=== PATIENT | female | born 1995 | race Caucasian/White ===

== ENCOUNTER 2016-10-04 11:36 | Inpatient (IN) | payer OTHER ==
[2016-10-04] MEDS ORDERED: SUBLIMAZE IV PRN (12:10)
[2016-10-04] MEDS ORDERED: MINERAL OIL PO PRN (12:10)
[2016-10-04] MEDS ORDERED: BRETHINE SUB-Q PRN (12:10)
[2016-10-04] MEDS ORDERED: BRETHINE IVP PRN (12:10)
[2016-10-04] MEDS ORDERED: ZOFRAN IV PRN (12:10)
[2016-10-04] MEDS ORDERED: NARCAN 0.4 MG/1 ML IV PRN (12:10)
[2016-10-04] MEDS ORDERED: STADOL IV PRN (12:10)
[2016-10-04] MEDS ORDERED: ePHEDrine SULFATE IV PRN ×2 (12:21→14:29)
--- NOTE | 2016-10-04 12:36 | History and Physical Report ---
History of Present Illness Date of examination: 10/04/16 Date of admission: 10/04/16 12:14 Chief complaint: pt presents with c/o of rupture of membranes and uterine contractions Past History Past Medical History: no pertinent history, other (hx of panic attack) [employer] History: chlamydia Social history: no significant social history - Obstetrical History Expected Date of Delivery: 10/20/16 Actual Gestation: 37 Week(s) 5 Day(s) : 1 Number of Living Children: 0 Medications and Allergies Allergies Allergy/AdvReac Type Severity Reaction Status Date / Time No Known Allergies Allergy Verified 10/04/16 11:50 Active Meds: Active Medications Butorphanol Tartrate (Stadol) 2 mg IV Q2H PRN PRN Reason: Pain , Severe (7-10) Fentanyl (Sublimaze) 100 mcg IV Q2H PRN PRN Reason: Labor Pain Lactated Ringer's (Lactated Ringers) 1,000 mls @ 125 mls/hr IV DIRECT CHRISTIAN Oxytocin/Sodium Chloride (Pitocin/Ns 20 Unit/1000ml Drip) 20 unit in 1,000 mls @ 125 mls/hr IV DIRECT CHRISTIAN Oxytocin/Sodium Chloride (Pitocin/Ns 30 Unit/500ml) 30 unit in 500 mls @ 0 mls/ hr IV TITR CHRISTIAN PRN Reason: Protocol Oxytocin/Sodium Chloride (Pitocin/Ns 30 Unit/500ml) 30 unit in 500 mls @ 1 mls/ hr IV TITR CHRISTIAN; 1 MILLIUNITS/MIN PRN Reason: Protocol Lidocaine (Xylocaine 2%) 20 ml INFILTRATI ONCE ONE Stop: 10/04/16 13:01 Mineral Oil (Mineral Oil) 30 ml PO QHS PRN PRN Reason: Constipation Naloxone HCl (Narcan 0.4 Mg/1 Ml) 0.1 mg IV Q2MIN PRN PRN Reason: Res Rate </= 8 or 02 SAT < 92% Ondansetron HCl (Zofran) 4 mg IV Q8H PRN PRN Reason: Nausea And Vomiting Review of Systems All systems: negative Gastrointestinal: abdominal pain Genitourinary: leakage of fluid - Vital Signs Vital signs: Vital Signs Pulse BP 93 H 145/75 10/04/16 11:46 10/04/16 11:46 Temp Pulse Resp BP Pulse Ox 93 H 145/75 10/04/16 11:46 10/04/16 11:46 - Physical Exam Breasts: Cardiovascular: Regular rate, Normal S1, Normal S2 Abdomen: Positive: normal appearance, soft, normal bowel sounds. Negative: distention, tenderness Vulva: both: normal Vagina: Positive: normal moisture. Negative: discharge Cervix: Negative: lesion, discharge Uterus: Positive: normal size, normal contour Adnexa: both: normal Anus/Rectum: Positive: normal perianal skin, heme negative. Negative: rectal mass, hemorrhoids Extremities: Deep Tendon Reflex Grade: Normal +2 - Obstetrical FHR: category 1 Uterine Contraction Monitor Mode: External Cervical Dilatation: 6 Cervical Effacement Percentage: 100 station: -1 Uterine Contraction Pattern: Irregular Uterine Tone Measurement Phase: Resting Results Result Diagrams: 10/04/16 14:04 All other labs normal. Assessment and Plan iup at term, active labor, Plan- admit, augment labor, anticipate
[2016-10-04] MEDS: LACTATED RINGERS 1,000 ML IV SCH ×3 (12:55→20:14)
[2016-10-04] MEDS ORDERED: XYLOCAINE 2% INFILTRATI ONE ×4 (13:00→20:57)
[2016-10-04] MEDS ORDERED: PITOCin/NS 30 UNIT/500ML 30 UNIT/500 ML BAG IV SCH (13:00)
[2016-10-04] MEDS ORDERED: PITOCin/NS 20 UNIT/1000ML DRIP 20 UNIT/1,000 ML BAG IV SCH (13:00)
[2016-10-04 14:21] LABS: Hematocrit 39.3 % (30.3-42.9); Mean Corpuscular HGB Conc 33 % (30-34); Mean Corpuscular Hemoglobin 30 pg (28-32); Mean Corpuscular Volume 89 fl (79-97); Platelet Count 144 K/mm3 (140-440); Red Cell Distribution Width 14.1 % (13.2-15.2); White Blood Count 10.8 K/mm3 (4.5-11.0)
[2016-10-04] MEDS ORDERED: ePHEDrine SULFATE ONE (14:25)
--- NOTE | 2016-10-04 14:29 | Anesthesia Consultation ---
Anesthesia Consult and Med Hx Date of service: 10/04/16 - Airway Anesthetic Teeth Evaluation: Good ROM Head & Neck: Adequate Mental/Hyoid Distance: Adequate Mallampati Class: Class II Intubation Access Assessment: Probably Good - Pre-Operative Health Status ASA Pre-Surgery Classification: ASA2 Proposed Anesthetic Plan: Epidural, Spinal - Pulmonary Hx Asthma: No - Cardiovascular System Hx Hypertension: No - Central Nervous System Hx Seizures: No Hx Psychiatric Problems: No - Endocrine Hx Renal Disease: No Hx Hypothyroidism: No Hx Hyperthyroidism: No - Hematic Hx Anemia: No Hx Sickle Cell Disease: No - Other Systems Hx Alcohol Use: No
[2016-10-04] MEDS: fentaNYL-BUPIV 2 MCG/ML-0.125% 200 MCG/100 ML BAG EPIDURAL SCH ×2 (15:30→17:25)
--- NOTE | 2016-10-04 18:03 | Event Note ---
Date: 10/04/16 pt examined and noted to be c/8 -1 vertex[address] in [address].
[2016-10-04] MEDS: PITOCin/NS 30 UNIT/500ML 30 UNIT/500 ML BAG IV SCH ×2 (20:15→21:27)
--- NOTE | 2016-10-04 22:44 | Procedure Note ---
OB Delivery Note - Delivery Date of Delivery: 10/04/16 Surgeon: BELEM WARD Estimated blood loss: 200cc - Vaginal Delivery presentation: vertex Delivery position: OA Intrapartum events: none Delivery induction: none Delivery augmentation: pitocin Delivery monitor: external FHT, internal uterine Route of delivery: Delivery placenta: spontaneous Delivery cord: 3 umbilical vessels Episiotomy: none Delivery laceration: 2nd degree (periurethral laceration ) Delivery repair: vicryl Anesthesia: epidural - Infant A at 1 minute: 8 at 5 minutes: 9 Infant Gender: Female (wt 6-4, pt noted to have temp of 100.3 at delivery.)
[2016-10-05] MEDS ORDERED: PERCOCET 5/325 PO PRN (00:09)
[2016-10-05] MEDS ORDERED: ZOFRAN IV PRN (00:09)
[2016-10-05] MEDS ORDERED: MILK OF MAGNESIA PO PRN (00:09)
[2016-10-05] MEDS ORDERED: PHENERGAN PO PRN (00:09)
[2016-10-05] MEDS ORDERED: SODIUM CHLORIDE FLUSH SYRINGE 10 ML IV PRN (00:09)
[2016-10-05] MEDS ORDERED: BENADRYL PO PRN (00:09)
[2016-10-05] MEDS ORDERED: LANSINOH TP PRN (00:09)
[2016-10-05] MEDS ORDERED: PHENERGAN PR PRN (00:09)
[2016-10-05] MEDS ORDERED: TUCKS PAD TP PRN (00:09)
[2016-10-05] MEDS ORDERED: DERMOPLAST TP PRN (00:09)
[2016-10-05] MEDS ORDERED: TYLENOL PO PRN (00:09)
[2016-10-05] MEDS ORDERED: PITOCin/NS 20 UNIT/1000ML DRIP 20 UNIT/1,000 ML BAG IV SCH (00:09)
[2016-10-05] MEDS ORDERED: DULCOLAX PR PRN (00:09)
[2016-10-05] MEDS: MOTRIN PO SCH ×5 (00:36→23:54)
[2016-10-05 10:38] LABS: Hematocrit 30.2 % (30.3-42.9); Hemoglobin 9.9 gm/dl (10.1-14.3)
[2016-10-05] MEDS ORDERED: FLUARIX QUAD 2016-2017(36 MOS+) IM ONE (12:00)
--- NOTE | 2016-10-05 17:08 | Progress Note ---
Subjective Date of service: 10/05/16 Interval history: 1st day after normal vaginal delivery Patient is in the bed, relatively comfortable. Pain is mostly controlled with pain meds. No nausea or vomiting. Ambulated well. No residual neurological deficit. No anesthesia complications Objective - Constitutional Vitals: Vital Signs - 12hr 10/05/16 10/05/16 05:10 07:58 Temperature 99 F 98.5 F Pulse Rate [ 90 90 Left From Monitor] Respiratory 20 20 Rate Blood Pressure 121/62 108/58 [Right Arm] - Labs CBC & Chem 7: 10/05/16 10:31 Labs: Abnormal lab results 10/05/16 Range/Units 10:31 Hgb 9.9 L D (10.1-14.3) gm/dl Hct 30.2 L D (30.3-42.9) %
[2016-10-06] MEDS ORDERED: BOOSTRIX IM ONE (04:02)
[2016-10-06] MEDS: MOTRIN PO SCH (06:18)
--- NOTE | 2016-10-06 07:51 | Progress Note ---
Assessment and Plan ppd 1 s/p . plan - d/c home this pm on iron Subjective - Subjective Date of service: 10/06/16 Principal diagnosis: ppd 1 s/p Interval history: routine pp care Patient reports: appetite normal, voiding normally, pain well controlled [place]: doing well Objective - Vital Signs Latest vital signs: Vital Signs Temp Pulse Resp BP 10/06/16 00:00 98.1 F 88 20 136/62 10/05/16 17:19 98 F 86 18 109/64 10/05/16 07:58 98.5 F 90 20 108/58 Intake and Output 10/05/16 10/06/16 10/06/16 22:59 06:59 14:59 Intake Total 600 Balance 600 Intake: Oral 600 Other: Total, Intake Amount 240 # Voids Void 1 1 - Exam Breasts: Present: deferred Cardiovascular: Present: Regular rate, Normal S1, Normal S2 Lungs: Present: Clear to auscultation Abdomen: Present: normal appearance, soft Vulva: both: normal Uterus: Present: normal Extremities: Present: normal Deep Tendon Reflex Grade: Normal +2 Incision: Present: normal, dry, intact - Labs Labs: Abnormal lab results 10/05/16 Range/Units 10:31 Hgb 9.9 L D (10.1-14.3) gm/dl Hct 30.2 L D (30.3-42.9) %
--- NOTE | 2016-10-06 07:55 | Discharge Summary ---
Providers - Providers Date of Admission: 10/04/16 12:14 Date of discharge: 10/06/16 Attending physician: BELEM WARD Primary care physician: BELEM WARD Hospitalization Reason for admission: active labor Delivery: Procedure details: s/p Episiotomy: none Laceration: vaginal side wall, 2nd degree Other procedures: none complications: none Discharge diagnosis: IUP at term delivered Mobile baby: female Hospital course: routine pp course Condition at discharge: Good Disposition: DISCHARGED TO HOME OR SELFCARE - Discharge Diagnoses (1) (normal spontaneous vaginal delivery) Status: Acute (2) Anemia Status: Acute Qualifiers: Anemia type: A Iron deficiency anemia type: I Vitamin B12 deficiency anemia type: V Folate deficiency anemia type: F Bone marrow failure anemia type: B Hemolytic anemia type: H Other causes of anemia: O Comment: secondary to the blood loss of delivery Plan - Discharge Medications Prescriptions: Ferrous Sulfate [Feosol 325 MG tab] 325 mg PO BID #60 tablet Ibuprofen [Motrin 800 MG tab] 800 mg PO Q8HR PRN #30 tablet PRN Reason: Pain oxyCODONE /ACETAMINOPHEN [Percocet 5/325] 1 tab PO Q6HR PRN #30 tablet PRN Reason: Pain - Provider Discharge Summary Activity: routine, no heavy lifting 4 weeks, no strenuous exercise Diet: routine Instructions: routine Additional instructions: [] Smoking cessation referral if applicable(refer to patient education folder for contact #) [] Refer to [facility] Booklet Call your doctor immediately for: * Fever > 100.5 * Heavy vaginal bleeding ( >1 pad per hour) * Severe persistent headache * Shortness of breath * Reddened, hot, painful area to leg or breast * Drainage or odor from incision. * Keep incision clean and dry at all times and follow doctor's instructions regarding bathing/showering - Follow up plan Follow up: BELEM WARD MD [Primary Care Provider] - 6 Weeks
[2016-10-06 11:27] VITALS: BP 124/63
== END 2016-10-06 11:10 | disposition home or self-care (01) | DRG 774 ==
LOC: TRG 11:36 → EDBD 12:14 → LD 12:14 → OB 10-05 00:23
PROVIDERS: ADMIT Specialist; ATTEND Specialist
PROC: 10E0XZZ Delivery of Products of Conception, External Approach (ICD-10-PCS; principal; 2016-10-04)
PROC: 0UQMXZZ Repair Vulva, External Approach (ICD-10-PCS; 2016-10-04)
PROC: 3E0S3CZ (ICD-10-PCS; 2016-10-04)
PROC: 00HU33Z Insertion of Infusion Device into Spinal Canal, Percutaneous Approach (ICD-10-PCS; 2016-10-04)
DX: O98.82 Other maternal infectious and parasitic diseases complicating childbirth (principal); D62 Acute posthemorrhagic anemia; A74.9 Chlamydial infection, unspecified; O71.82 Other specified trauma to perineum and vulva; O90.81 Anemia of the puerperium; Z3A.37 37 weeks gestation of pregnancy; Z37.0 Single live birth
CPT/HCPCS: 36415; 85014; 85018; 85027; 86850; 86900; 86901; 88307; 90471; 90686; 90715; G0008; J0595; J2590; J7120